=== PATIENT | female | born 1950 | race Caucasian/White ===

== ENCOUNTER 2016-04-12 19:24 | Emergency (ER) | payer MEDICARE, OTHER ==
[~2016-04-12 19:24] MED LIST: AMARYL2 MG PO; CELEBREX; CELEBREX50 MG; CETIRIZINE10 MG PO; CHILDREN'S ASPI81 M1 PO; CITALOPRAM20 MG PO; CYCLOBENZAPRINE10 MG PO; FLONASE0.05 MG/AC NS; KLONOPIN0.5 MG PO; KLONOPIN1 MG PO; LEVAQUIN 5500 MG/TA1 PO; LEVAQUIN 750MG750 M1 PO; LEVOTHYROXINE PO; MECLICOT25 MG PO; METFORMIN1000 MG; MUCUS RELIEF DM1 TAB PO; MUPIROCIN2% NAS; NEURONTIN100 MG; NORCO 325 MG-51 TA1 PO; NORCO 325 MG-51 TAB PO; OMEPRAZOLE40 MG PO; ONDANSETRON ODT8 MG PO; PAROXETINE20 MG PO; PEPCID20 M1 PO; PREDNISONE10 MG PO; PROVENTIL0.09 MG/Ac INH; RELION VEN0.09 MG/Ac IH; SERTRALINE50 MG PO; ST. JOSEPH81 M1 PO; SYMBICORT1 AE2 INH; SYMBICORT1 AE3; TESSALON PERLE200 MG PO; TRAZADONE HYDR100 MG PO; XANAX XR1 MG PO; XANAX0.25 MG PO; ZANAFLEX4 M1 PO; ZOFRAN ODT8 MG PO; ZYRTEC10 M3 PO
[2016-04-12] MEDS ORDERED: FLEXERIL 1010 MG/TAB PO (19:34)
== END 2016-04-12 19:57 | disposition home or self-care (01) ==
LOC: ED 19:24
DX: S39.012A Strain of muscle, fascia and tendon of lower back, initial encounter (principal); M54.16 Radiculopathy, lumbar region; W18.49XA Other slipping, tripping and stumbling without falling, initial encounter; Y92.018 Other place in single-family (private) house as the place of occurrence of the external cause
CPT/HCPCS: J1100; J1885

== ENCOUNTER 2016-04-23 08:04 | Outpatient (RCR) | payer MEDICARE, OTHER ==
[2016-04-12 19:57] VITALS: BP 132/71
[~2016-04-23 08:04] MED LIST changes: +FLEXERIL 1010 MG/TAB PO
== END 2016-06-22 14:32 | disposition home or self-care (01) ==
LOC: PT 08:04
DX: M54.9 Dorsalgia, unspecified (principal)

== ENCOUNTER → 2017-01-15 | Outpatient (CLI) | payer MEDICARE, OTHER ==
[2016-04-12 19:57] VITALS: BP 132/71
== END ==
LOC: MAMMO 10:28
DX: Z12.31 Encounter for screening mammogram for malignant neoplasm of breast (principal)
CPT/HCPCS: G0202

== ENCOUNTER 2017-01-22 09:00 | Outpatient (RCR) | payer MEDICARE, OTHER ==
[2016-04-12 19:57] VITALS: BP 132/71
== END 2017-01-22 09:30 | disposition home or self-care (01) ==
LOC: PT 09:00
DX: M17.11 Unilateral primary osteoarthritis, right knee (principal)
CPT/HCPCS: G8978-GP; G8979-GP

== ENCOUNTER 2017-06-01 05:56 | Emergency (ER) | payer MEDICARE, OTHER ==
[~2017-06-01] VITALS: Ht 167.6 cm; Wt 77.7 kg
[~2017-06-01 05:56] MED LIST changes: +GLUCOPHAGE1000 MG PO; +KLONOPIN 1MG1 MG PO; -KLONOPIN1 MG PO; -METFORMIN1000 MG
[2017-06-01] MEDS ORDERED: GLUCOPHAGE1000 MG PO (06:16)
[2017-06-01] MEDS ORDERED: FLONASE ALLERG9.9 ML NS (06:17)
[2017-06-01] MEDS ORDERED: COCONUT OIL1000 MG PO (06:17)
[2017-06-01] MEDS ORDERED: NATURE'S BLEND500 M1 PO (06:17)
[2017-06-01] MEDS ORDERED: CO Q-10200 MG PO (06:18)
[2017-06-01] MEDS ORDERED: NATURE'S BOUNTY1 TAB PO (06:19)
[2017-06-01] MEDS ORDERED: APPLE CIDER VI1 EACH PO (06:20)
[2017-06-01] MEDS ORDERED: PAXIL30 M2 PO (06:22)
[2017-06-01] MEDS ORDERED: SIMVASTATIN20 M1 PO (06:23)
[2017-06-01] MEDS ORDERED: PREDNISONE10 MG PO (06:25)
[2017-06-01 07:52] VITALS: BP 148/55
== END 2017-06-01 07:40 | disposition home or self-care (01) ==
LOC: ED 05:56
DX: S05.12XA Contusion of eyeball and orbital tissues, left eye, initial encounter (principal); S80.01XA Contusion of right knee, initial encounter; W01.198A Fall on same level from slipping, tripping and stumbling with subsequent striking against other object, initial encounter; Y92.009 Unspecified place in unspecified non-institutional (private) residence as the place of occurrence of the external cause; E11.9 Type 2 diabetes mellitus without complications; J45.909 Unspecified asthma, uncomplicated; S80.212A Abrasion, left knee, initial encounter; S80.211A Abrasion, right knee, initial encounter; Z79.84 Long term (current) use of oral hypoglycemic drugs; Z79.82 Long term (current) use of aspirin
CPT/HCPCS: J1885

== ENCOUNTER → 2017-11-13 | Outpatient (CLI) | payer MEDICARE, OTHER ==
[~2017-11-13] MED LIST changes: +APPLE CIDER VI1 EACH PO; +CO Q-10200 MG PO; +COCONUT OIL1000 MG PO; +FLONASE ALLERG9.9 ML NS; +NATURE'S BLEND500 M1 PO; +NATURE'S BOUNTY1 TAB PO; +PAXIL30 M2 PO; +SIMVASTATIN20 M1 PO
== END ==
LOC: RAD 14:02
DX: I65.23 Occlusion and stenosis of bilateral carotid arteries (principal)